=== PATIENT | male | born 1960 | race Caucasian/White ===

== ENCOUNTER → 2022-03-17 12:36 | Outpatient (CLI) | payer BC, SELFPAY ==
--- NOTE | 2022-03-17 12:39 | DI.MRI.S_ITS ---
PROCEDURE: MR KNEE LT WO CON INDICATIONS: Pain in left knee TECHNIQUE: Noncontrast sagittal PD fast spin echo and T2 fast spin echo with fat saturation, sagittal 3-D FLASH with fat saturation; coronal T1 spin echo and PD fast spin echo with fat saturation, and axial PD fast spin echo with fat saturation through the knee. COMPARISON: [facility] [place], CR, XR KNEE 4+ VIEWS LEFT, 02/21/2022, 8:37. [facility] [place], CR, XR KNEE ARTHRITIC SERIES LT, 02/12/2018, 8:28. [facility], MR, MR KNEE LT WO CON, 02/23/2018, 11:48. FINDINGS: Image quality: Excellent. Menisci: The posterior horn of the medial meniscus is small with heterogeneous signal intensity and irregular inferior surface, compatible with sequelae of prior meniscal tear and meniscectomy. There is linear hyperintense signal in the peripheral aspect of the body and posterior horn of the lateral meniscus, which does not extend to the articular surface, compatible with intrasubstance degeneration. The meniscal root ligaments appear intact. Cruciate ligaments: The anterior and posterior cruciate ligaments appear intact. Medial structures: The medial collateral ligament appears intact. The semimembranosus tendon insertions and meniscocapsular junction appear intact. Visualized portions of the pes anserinus tendons appear normal. No abnormal bursal fluid. Lateral structures: The lateral collateral ligament, long and short heads of the biceps femoris tendon appear intact. The popliteus tendon appears normal. Iliotibial band appears normal. Anterior structures: The quadriceps and patellar tendons appear intact. Patellar alignment is normal. No femoral trochlear dysplasia or ventral trochlear prominence. There is mild edema in the superior lateral aspect of the infrapatellar fat pad. Bones and cartilage: No bone marrow contusions or fractures. There is cartilage cartilage fibrillation in the medial femorotibial compartment and patellofemoral compartment with relatively preserved cartilage thickness. Joint space: There is physiologic knee joint fluid. There is a tiny Arndt's cyst. Normal appearing synovial plicae are incidentally noted. IMPRESSION: 1. Abnormal morphology and signal intensity of the posterior horn of the medial meniscus, compatible with sequelae of prior meniscal tear and meniscectomy. 2. 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 3. Mild edema in the superior lateral aspect of the infrapatellar fat pad, suggesting infrapatellar fat pad impingement. 4. Cartilage signal degeneration in the medial femorotibial compartment and patellofemoral compartment with relatively preserved cartilage thickness. Dictated by: Alejandro Mata M.D. on 03/17/2022 at 15:17 Approved by: Alejandro Mata M.D. on 03/17/2022 at 15:30
== END ==
PROVIDERS: PCP Family Medicine; Referring Provider Orthopaedic Surgery; Visit Provider Orthopaedic Surgery
DX: M25.562 Pain in left knee (principal); R60.9 Edema, unspecified; M23.352 Other meniscus derangements, posterior horn of lateral meniscus, left knee; M23.8X2 Other internal derangements of left knee
CPT/HCPCS: 73721

== ENCOUNTER → 2022-12-30 09:10 | Outpatient (CLI) | payer OTHER, SELFPAY ==
--- NOTE | 2022-12-30 | DI.MRI.S_ITS ---
PROCEDURE: MR KNEE LT WO CON INDICATIONS: Pain in left knee TECHNIQUE: Noncontrast sagittal PD fast spin echo and T2 fast spin echo with fat saturation, sagittal 3-D FLASH with fat saturation; coronal T1 spin echo and PD fast spin echo with fat saturation, and axial PD fast spin echo with fat saturation through the knee. COMPARISON: [facility] [place], CR, XR KNEE 4+ VIEWS LEFT, 02/21/2022, 8:37. [facility], MR, MR KNEE LT WO CON, 03/17/2022, 12:46. FINDINGS: Image quality: Excellent. Menisci: There is linear horizontal high T2 signal intensity traversing the inner, middle, and peripheral thirds of the medial meniscal body and posterior horn, demonstrating inferior articular surface extension, indicating horizontal tearing, as before. Lateral meniscus demonstrates a discoid configuration without tear. Cruciate ligaments: The anterior and posterior cruciate ligaments appear intact. Medial structures: The medial collateral ligament appears intact. Visualized portions of the pes anserinus tendons appear normal. No abnormal bursal fluid. Lateral structures: The lateral collateral ligament, long and short heads of the biceps femoris tendon appear intact. The popliteus tendon appears normal. Iliotibial band appears normal. Anterior structures: The quadriceps and patellar tendons appear intact. There is mild T2 signal elevation within the quadriceps and patellar tendons at the patellar insertion sites. Patellar alignment is normal. No femoral trochlear dysplasia or ventral trochlear prominence. There is moderate edema within the superolateral aspect of the infrapatellar fat pad. Bones and cartilage: No bone marrow contusions or fractures. Articular cartilage fibrillation overlies the lateral patellar facet. Moderate articular cartilage loss diffusely overlies the weight-bearing aspects of the medial femoral condyle and medial tibial plateau. Joint space: There is physiologic knee joint fluid. Small Arndt's cyst. Normal appearing synovial plicae are incidentally noted. IMPRESSION: 1. No change in medial meniscal tearing. 2. Mild quadriceps and patellar tendinopathy. 3. Findings consistent with lateral patellofemoral friction syndrome in the appropriate clinical setting. 4. Medial and patellofemoral compartment articular cartilage loss. Dictated by: Elly Shoemaker M.D. on 12/30/2022 at 10:27 Approved by: Elly Shoemaker M.D. on 12/30/2022 at 10:30
== END ==
PROVIDERS: PCP Family Medicine; Referring Provider Family Medicine; Visit Provider Family Medicine
DX: S83.242A Other tear of medial meniscus, current injury, left knee, initial encounter (principal); M25.562 Pain in left knee
CPT/HCPCS: 73721

== ENCOUNTER 2023-08-31 08:04 | Day surgery (SDC) | payer OTHER, SELFPAY ==
[2023-08-31 08:18] VITALS: BMI 29.5
[2023-08-31 08:34] VITALS: BP 155/90; PULSE 69; RESP 17; TEMP 36.1; O2SAT 99
[2023-08-31] MEDS: LACTATED RINGERS 1,000 ML 42 ML IV (08:38)
--- NOTE | 2023-08-31 09:24 | PM.HP.1 ---
History of Present Illness History of Present Illness Date Patient Seen: 08/31/23 Time Patient Seen: 09:24 Chief complaint: Screening Colonoscopy Narrative: Mihir is a 63-year-old man who has a history of colon polyps. His last colonoscopy was about 5 years ago. No family history of colon cancer. PFSH Social History household members: spouse Smoking Status: Never smoker alcohol intake: current Meds Home Medications and Allergies Allergies Allergy/AdvReac Type Severity Reaction Status Date / Time No Known Drug Allergies Allergy Verified 08/31/23 08:54 Exam Vital Signs (past 8 hours): - 08/31/23 08:34 Temperature 97 F L Pulse Rate 69 Respiratory Rate 17 Blood Pressure 155/90 H Pulse Oximetry 99 Oxygen Delivery Method Room Air Oxygen Delivery Method Room Air Const General: No acute distress Resp Effort & Inspection: normal respiratory effort Assessment & Plan Assessment and plan (1) History of colon polyps: Status: Acute Plan We reviewed the risks and benefits of colonoscopy for colon polyps and he would like to proceed.
--- NOTE | 2023-08-31 09:45 | P.OP.COLON_ITS ---
Operative Date/Time/Diagnoses Date of procedure: 08/31/23 Time of procedure: 09:45 Pre-op diagnosis: History of polyps Post-op diagnosis: same Procedure & Clinicians Study performed: Colonoscopy Same procedure as scheduled: Yes Surgeon: Mihir Hope Procedure Notes Procedure in detail: Surgeon: Mihir Hope MD Anesthesia: Shannan Thakkar CRNA Procedure: The patient was brought to the endoscopy suite, placed in left lateral decubitus position. The patient was connected to monitoring devices. A time-out was performed. Sedation was administered. Once the patient was adequately sedated, a digital rectal exam was performed and was normal. The scope was then inserted and advanced to the cecum where the appendiceal orifice was identified and photographed. The scope was then slowly withdrawn over greater than 6 minutes. The mucosa was thoroughly inspected. No polyps were f ound. The scope was retroflexed in the rectum. No other abnormalities were seen. The scope was straightened and removed. The patient was awakened and brought to recovery. Scope withdrawal time: 10 minutes Sedation time: 13 minutes EBL: 0 Findings: Normal colon Post-procedure Recommendations: Colonoscopy in 10 years Disposition: PACU
[2023-08-31 09:47] VITALS: BP 118/67; PULSE 100; RESP 16; TEMP 36.2; O2SAT 95
[2023-08-31 09:52] VITALS: BP 120/70; PULSE 95; RESP 16; TEMP 36.1; O2SAT 98
[2023-08-31 09:57] VITALS: BP 147/89; PULSE 86; RESP 16; TEMP 36.2; O2SAT 98
== END 2023-08-31 10:20 | disposition home or self-care (01) ==
PROVIDERS: PCP Family Medicine; Referring Provider Surgery; Visit Provider Surgery
PROC: 0DJD8ZZ Inspection of Lower Intestinal Tract, Via Natural or Artificial Opening Endoscopic (ICD-10-PCS; CPT 45378; principal; 2023-08-31 09:15)
DX: Z12.11 Encounter for screening for malignant neoplasm of colon (principal); Z86.010 Personal history of colon polyps
CPT/HCPCS: 45378; J2704